=== PATIENT | female | born 1990 | race African-American/Black ===

== ENCOUNTER 2016-11-02 14:37 | Emergency (ER) | payer OTHER ==
[~2016-11-02] VITALS: Ht 177.8 cm; Wt 90.7 kg
[2016-11-02 14:37] VITALS: BP 107/76
[~2016-11-02 14:37] MED LIST: NAPROSYN500 MG PO
[2016-11-02] MEDS ORDERED: ACYCLOVIR 400400 MG PO (14:58)
[2016-11-02] MEDS ORDERED: MEDROLDOSEPACK PO (14:58)
[2016-11-02] MEDS ORDERED: NORCO 5-325 TA1 EACH PO (15:01)
== END 2016-11-02 15:13 | disposition home or self-care (01) ==
LOC: ER 14:37
DX: L29.9 Pruritus, unspecified (principal); F10.99 Alcohol use, unspecified with unspecified alcohol-induced disorder

== ENCOUNTER 2016-11-03 00:56 | Emergency (ER) | payer OTHER ==
[~2016-11-03] VITALS: Ht 177.8 cm; Wt 95.3 kg
[~2016-11-03 00:56] MED LIST changes: +ACYCLOVIR 400400 MG PO; +MEDROLDOSEPACK PO; +NORCO 5-325 TA1 EACH PO
[2016-11-03 03:26] VITALS: BP 104/52
== END 2016-11-03 03:27 | disposition home or self-care (01) ==
LOC: ER 00:56
DX: R21 Rash and other nonspecific skin eruption (principal); R51 Headache; R53.83 Other fatigue; F10.99 Alcohol use, unspecified with unspecified alcohol-induced disorder

== ENCOUNTER 2017-04-22 13:38 | Emergency (ER) | payer OTHER ==
[~2017-04-22] VITALS: Ht 170.2 cm; Wt 81.7 kg
[~2017-04-22 13:38] MED LIST changes: +FLAGYL500 MG PO; +MOBIC15 MG PO
[2017-04-22 14:13] LABS: URINE BILIRUBIN NEGATIVE (Negative); URINE BLOOD 3+ (Negative); URINE COLOR YELLOW; URINE GLUCOSE-RANDOM* NEGATIVE (Negative); URINE KETONES TRACE (Negative); URINE LEUKOCYTES-REFLEX NEGATIVE (Negative); URINE PROTEIN (DIPSTICK) NEGATIVE (Negative); URINE UROBILINOGEN 0.2 E.U./dl (0.2-1.0)
[2017-04-22 14:19] LABS: SQUAMOUS 4-10 Moderate /LPF (0-3); URINE RBC 0-2 Rare /HPF (0-2); URINE WBC-REFLEX 0-5 Rare /HPF (0-5)
[2017-04-22 14:20] LABS: CASTS None Seen /LPF (None Seen); CRYSTALS None Seen /LPF (None Seen)
[2017-04-22] MEDS ORDERED: IMITREX 25 MG T25 M1 PO (15:17)
[2017-04-22] MEDS ORDERED: REGLAN 10 MG TA10 MG PO (15:17)
[2017-04-22 15:24] VITALS: BP 100/67
== END 2017-04-22 15:59 | disposition home or self-care (01) ==
LOC: ER 13:38
PROVIDERS: Physician Assistant
DX: G43.909 Migraine, unspecified, not intractable, without status migrainosus (principal); F10.99 Alcohol use, unspecified with unspecified alcohol-induced disorder; F19.10 Other psychoactive substance abuse, uncomplicated

== ENCOUNTER 2017-05-29 01:54 | Emergency (ER) | payer OTHER ==
[~2017-05-29] VITALS: Ht 170.2 cm; Wt 81.7 kg
[~2017-05-29 01:54] MED LIST changes: +IMITREX 25 MG T25 M1 PO; +REGLAN 10 MG TA10 MG PO
[2017-05-29 02:15] LABS: URINE BILIRUBIN NEGATIVE (Negative); URINE BLOOD NEGATIVE (Negative); URINE CLARITY CLEAR; URINE COLOR YELLOW; URINE GLUCOSE-RANDOM* NEGATIVE (Negative); URINE KETONES NEGATIVE (Negative); URINE LEUKOCYTES-REFLEX NEGATIVE (Negative); URINE NITRITE-REFLEX NEGATIVE (Negative); URINE PROTEIN (DIPSTICK) NEGATIVE (Negative); URINE UROBILINOGEN 0.2 E.U./dl (0.2-1.0)
== END 2017-05-29 03:49 | disposition home or self-care (01) ==
LOC: ER 01:54
PROVIDERS: Emergency Medicine
DX: S56.911A Strain of unspecified muscles, fascia and tendons at forearm level, right arm, initial encounter (principal); N89.8 Other specified noninflammatory disorders of vagina; G43.909 Migraine, unspecified, not intractable, without status migrainosus; W18.39XA Other fall on same level, initial encounter; Y93.89 Activity, other specified; Y92.89 Other specified places as the place of occurrence of the external cause; Y99.8 Other external cause status

== ENCOUNTER 2017-06-04 16:00 | Emergency (ER) | payer OTHER ==
[~2017-06-04] VITALS: Ht 170.2 cm; Wt 77.1 kg
[2017-06-04] MEDS ORDERED: NAPROSYN500 MG PO (16:24)
== END 2017-06-04 17:13 | disposition home or self-care (01) ==
LOC: ER 16:00
DX: M24.231 Disorder of ligament, right wrist (principal); M67.431 Ganglion, right wrist; G43.909 Migraine, unspecified, not intractable, without status migrainosus; Z87.891 Personal history of nicotine dependence

== ENCOUNTER 2018-01-27 17:20 | Emergency (ER) | payer OTHER ==
[~2018-01-27] VITALS: Ht 170.2 cm; Wt 72.6 kg
[2018-01-27 17:25] VITALS: BP 124/99
[2018-01-27 17:39] LABS: URINE BILIRUBIN NEGATIVE (Negative); URINE BLOOD NEGATIVE (Negative); URINE CLARITY CLEAR; URINE COLOR YELLOW; URINE GLUCOSE-RANDOM* NEGATIVE (Negative); URINE KETONES NEGATIVE (Negative); URINE LEUKOCYTES-REFLEX NEGATIVE (Negative); URINE NITRITE-REFLEX NEGATIVE (Negative); URINE PROTEIN (DIPSTICK) NEGATIVE (Negative); URINE SPECIFIC GRAVITY 1.015 (1.005-1.035); URINE UROBILINOGEN 0.2 E.U./dl (0.2-1.0)
[2018-01-27] MEDS ORDERED: FLAGYL500 MG PO (18:16)
[2018-01-28 15:06] LABS: NEISSERIA GONORRHEA-PCR Negative (Negative)
== END 2018-01-27 18:25 | disposition home or self-care (01) ==
LOC: ER 17:20
PROVIDERS: Physician Assistant
DX: N76.0 Acute vaginitis (principal)

== ENCOUNTER 2019-06-13 19:59 | Emergency (ER) | payer OTHER ==
[~2019-06-13] VITALS: Ht 170.2 cm; Wt 74.8 kg
[2019-06-13 20:18] VITALS: BP 114/82
[2019-06-13] MEDS ORDERED: PREDNISONE50 MG PO (22:43)
== END 2019-06-13 22:30 | disposition home or self-care (01) ==
LOC: ER 19:59
DX: M79.674 Pain in right toe(s) (principal); M79.675 Pain in left toe(s); Z87.891 Personal history of nicotine dependence

== ENCOUNTER 2020-03-22 11:52 | Emergency (ER) | payer OTHER ==
[~2020-03-22] VITALS: Ht 170.2 cm; Wt 72.6 kg
[~2020-03-22 11:52] MED LIST changes: +PREDNISONE50 MG PO
[2020-03-22] MEDS ORDERED: MOBIC7.5 MG PO (13:11)
[2020-03-22] MEDS ORDERED: VOLTAREN GEL 1100 G2 TOP (13:11)
[2020-03-22 13:44] VITALS: BP 102/78
== END 2020-03-22 13:44 | disposition home or self-care (01) ==
LOC: ER 11:52
DX: M77.8 Other enthesopathies, not elsewhere classified (principal); M79.671 Pain in right foot; G43.909 Migraine, unspecified, not intractable, without status migrainosus; Z98.51 Tubal ligation status; Z79.899 Other long term (current) drug therapy; Z87.891 Personal history of nicotine dependence

== ENCOUNTER 2020-10-05 21:53 | Emergency (ER) | payer OTHER ==
[~2020-10-05] VITALS: Ht 170.2 cm; Wt 70.3 kg
[~2020-10-05 21:53] MED LIST changes: +MOBIC7.5 MG PO; +VOLTAREN GEL 1100 G2 TOP
[2020-10-05 22:36] LABS: ABSOLUTE NEUTROPHILS 4.6 thou/uL (1.4-8.2); BASOPHILS 0.3 % (0.0-2.0); EOSINOPHILS 2.4 % (0.0-3.0); HEMATOCRIT 36.1 % (37.0-47.0); HEMOGLOBIN 12.2 gm/dL (12.0-15.0); LYMPHOCYTES 17.1 % (24.0-44.0); MCHC 33.9 g/dL (28.0-37.0); MCV 91.6 fL (80.0-100.0); MONOCYTES 7.5 % (1.0-8.0); PLATELET COUNT 239 thou/uL (150-400); POLYS 72.7 % (36.0-66.0); RBC 3.94 mil/uL (4.20-5.00); RDW 15.4 % (10.5-14.5); WBC 6.3 thou/uL (4.0-11.0)
[2020-10-05 22:39] LABS: CALCIUM 9.5 mg/dL (8.5-10.1); CREATININE 0.9 mg/dL (0.6-1.0); POTASSIUM 3.2 mmol/L (3.5-5.1)
[2020-10-05 22:44] LABS: ALBUMIN 4.1 g/dL (3.4-5.0); TOTAL BILIRUBIN 0.7 mg/dL (0.2-1.0); TOTAL PROTEIN 8.8 g/dL (6.4-8.2)
[2020-10-05 23:26] LABS: URINE BILIRUBIN NEGATIVE (Negative); URINE BLOOD NEGATIVE (Negative); URINE CLARITY CLEAR; URINE COLOR YELLOW; URINE GLUCOSE-RANDOM* NEGATIVE (Negative); URINE KETONES TRACE (Negative); URINE LEUKOCYTES-REFLEX NEGATIVE (Negative); URINE NITRITE-REFLEX NEGATIVE (Negative); URINE PROTEIN (DIPSTICK) 1+ (Negative)
[2020-10-05 23:46] LABS: CASTS None Seen /LPF (None Seen); MUCUS 4-6 Moderate strn/LPF (None Seen); SQUAMOUS >10 Many /LPF (0-3); TRANSITIONAL EPITHEL CELL 0-3 Few /LPF (None Seen)
[2020-10-05 23:47] LABS: CRYSTALS None Seen /LPF (None Seen); URINE RBC 1-2 Rare /HPF (NONE SEEN); URINE WBC-REFLEX 0-5 Rare /HPF (0-5)
[2020-10-06] MEDS ORDERED: DIFLUCAN150 MG PO (01:21)
[2020-10-06] MEDS ORDERED: FLAGYL500 M1 PO (01:21)
[2020-10-06] MEDS ORDERED: ZOFRAN ODT4 MG PO (01:21)
[2020-10-06] MEDS ORDERED: CIPROFLOXACIN500 M1 PO (01:21)
[2020-10-06 01:33] VITALS: BP 99/51
== END 2020-10-06 01:45 | disposition home or self-care (01) ==
LOC: ER 21:53
PROVIDERS: Emergency Medicine
DX: K52.9 Noninfective gastroenteritis and colitis, unspecified (principal); R11.10 Vomiting, unspecified; R10.30 Lower abdominal pain, unspecified; R10.2 Pelvic and perineal pain; G43.909 Migraine, unspecified, not intractable, without status migrainosus; Z87.891 Personal history of nicotine dependence; Z98.51 Tubal ligation status

== ENCOUNTER 2020-11-18 00:09 | Emergency (ER) | payer OTHER ==
[~2020-11-18] VITALS: Ht 170.2 cm; Wt 66.2 kg
[~2020-11-18 00:09] MED LIST changes: +CIPROFLOXACIN500 M1 PO; +DIFLUCAN150 MG PO; +FLAGYL500 M1 PO; +ZOFRAN ODT4 MG PO
[2020-11-18] MEDS ORDERED: REGLAN 5 MG TAB5 MG PO (02:29)
[2020-11-18 02:51] VITALS: BP 98/64
== END 2020-11-18 02:51 | disposition home or self-care (01) ==
LOC: ER 00:09
DX: R51.9 Headache, unspecified (principal); Z98.51 Tubal ligation status; G43.909 Migraine, unspecified, not intractable, without status migrainosus; Z87.891 Personal history of nicotine dependence